=== PATIENT | female | born 1990 | race Caucasian/White ===

== ENCOUNTER 2020-09-28 17:41 | Emergency (ER) | payer OTHER ==
[~2020-09-28] VITALS: Ht 152.4 cm; Wt 102.1 kg
[2020-09-28 17:47] VITALS: BP 139/61
--- NOTE | 2020-09-28 18:20 | NUR ---
29 Y/O F C/O BILATERAL LEG SWELLING, MORE SWOLLEN ON L LEG. PT WAS INSTRUCTED BY DR TO GET US DONE IN ER FOR BILATERAL LEG SWELLING TO R/O CLOTS. PT IS CURRENTLY 30 WEEKS , HAS OB AND CARE. G1 T0 L0. NO PAIN PRESENT AT THIS TIME. NKA. DENIES ANY SOB, CHEST PAIN, FEVER, COUGH, OR CONTACT WITH ANYONE COVID POSITIVE. GI/ WNL.
--- NOTE | 2020-09-28 19:18 | NUR ---
REPORT RECEIVED FROM KIERA BRUSH. CONTINUATION OF CARE.
--- NOTE | 2020-09-28 20:15 | NUR ---
Patient discharged with v/s stable. Written and verbal after care instructions given and explained. Patient verbalized understanding. Ambulatory with steady gait. All questions addressed prior to discharge. Advised to follow up with PMD/OBGYN.
[2020-09-28 20:19] VITALS: BP 142/78
== END 2020-09-28 20:15 | disposition home or self-care (01) ==
LOC: MED 17:41
DX: O26.893 Other specified pregnancy related conditions, third trimester (principal); R60.9 Edema, unspecified; Z98.890 Other specified postprocedural states
CPT/HCPCS: 81002; 81025; 93970; 99284